=== PATIENT | female | born 1965 | race African-American/Black ===

== ENCOUNTER 2023-09-05 09:43 | Inpatient (IN) | payer BC ==
[~2023-09-05] VITALS: Ht 167.6 cm; Wt 115.7 kg
[2023-09-05 10:33] LABS: HEMATOCRIT. 33.1 % (36.0-48.0); HEMOGLOBIN. 10.4 g/dL (12.0-16.0); MEAN CORPUSCULAR HGB CONC 31.4 g/dL (31.0-37.0); MEAN CORPUSCULAR VOLUME 79.6 fL (81.0-99.0); MEAN PLATELET VOLUME 9.3 fl (7.4-10.4); PLATELET 347 x1000/uL (130-400); RED BLOOD CELL COUNT 4.16 mill/uL (4.2-5.4); RED CELL DISTRIBUTION WIDTH 15.2 % (11.6-14.6); WHITE BLOOD COUNT 23.7 x1000/uL (4.5-11.0)
[2023-09-05 10:35] LABS: CHLORIDE 103 mEq/L (98-107); POTASSIUM 4.5 mEq/L (3.5-5.1); SODIUM 136 mEq/L (136-145)
[2023-09-05 10:36] LABS: CARBON DIOXIDE 25 mEq/L (21-32)
[2023-09-05 10:37] LABS: CALCIUM 8.3 mg/dL (8.7-10.4)
[2023-09-05 10:41] LABS: CREATININE 1.5 mg/dL (0.6-1.0); UREA NITROGEN BLOOD 19 mg/dL (9-23)
[2023-09-05 10:42] LABS: TROPONIN I HIGH SENSITIVITY 29 ng/L (3.0-34)
[2023-09-05 10:45] LABS: BG CARBOXYHEMOGLOBIN 0.2 % (0.5-1.5); BG DEOXYHEMOGLOBIN 11.2 % (0.0-5.0); BG FRACTION INSPIRED OXYGEN 21; BG HCO3 ACT 27.1 mmol/L (22.0-26.0); BG METHEMOGLOBIN 0.3 % (0.0-1.5); BG OXYGEN SATURATION 88.7 % (92.0-98.5); BG OXYHEMOGLOBIN 88.3 % (94.0-97.0); BG PCO2 44.4 mmHg (35.0-45.0); BG PH 7.403 (7.350-7.450); BG PO2 55.6 mmHg (75.0-100.0); BG SAMPLE SITE LEFT BRACHIAL; BG TOTAL HEMOGLOBIN 11.4 g/dL (12.0-18.0); BG VENT MODE ROOM AIR
[2023-09-05 10:49] LABS: GLUCOSE 575 mg/dL (70-105)
[2023-09-05 11:06] LABS: DIFFERENTIAL COMMENT 1
[2023-09-05] MEDS: INSULIN REGULAR (HUMULIN R) 300UNITS/3ML VIAL IV ONE (11:11)
[2023-09-05] MEDS: SODIUM CHLORIDE 0.9% 1,000 ML IV ONE (11:28)
[2023-09-05] MEDS ORDERED: VANCOMYCIN 1000MG/250ML 250 ML IV SCH (11:45)
[2023-09-05] MEDS: INSULIN REGULAR (HUMULIN R) 300UNITS/3ML VIAL IV NR (11:45)
[2023-09-05] MEDS: HYDRALAZINE 20MG/ML VIAL IV ONE (11:59)
[2023-09-05] MEDS: VANCOMYCIN 1.5GM/250ML 250 ML IV NR (12:00)
[2023-09-05 13:19] LABS: ANISOCYTOSIS 1+; PLATELET ESTIMATE NORMAL
[2023-09-05] MEDS ORDERED: DOCUSATE SODIUM 100MG CAPSULE PO PRN (13:30)
[2023-09-05] MEDS ORDERED: PIPERACILLIN/TAZOBACTAM 3.375 G in DEXTROSE 5% WATER 50 ML IV SCH (13:30)
[2023-09-05] MEDS ORDERED: ACETAMINOPHEN 325MG TABLET PO PRN (13:30)
[2023-09-05] MEDS ORDERED: MAGNESIUM/ALUMINUM HYDROXIDE/SIMETHICONE 30ML UDC PO PRN (13:30)
[2023-09-05] MEDS ORDERED: IPRATROPIUM/ALBUTEROL 0.5-3(2.5)MG/3ML NEB HHN PRN (13:30)
[2023-09-05] MEDS ORDERED: GUAIFENESIN 200MG/10ML SUGAR FREE UDC PO PRN (13:30)
[2023-09-05] MEDS ORDERED: ONDANSETRON HCL 4MG/2ML INJ IV PRN (13:30)
[2023-09-05] MEDS: AMLODIPINE 10MG TABLET PO SCH (14:04)
[2023-09-05] MEDS: SODIUM CHLORIDE 0.45% 1,000 ML IV SCH (14:05)
[2023-09-05] MEDS: PIPERACILLIN/TAZO 3.375G/50ML IV SCH (15:00)
[2023-09-05] MEDS: PERMETHRIN 5% CREAM 60GM TOP NR (15:00)
[2023-09-05 17:38] LABS: PROTHROMBIN TIME 10.8 sec (9.6-11.0)
[2023-09-05 17:41] LABS: FERRITIN 216 ng/mL (10-291); FOLIC ACID (FOLATE) SERUM 5.49 ng/mL (>5.38); VITAMIN B12 SERUM 1583 pg/mL (211-911)
[2023-09-05 17:50] LABS: CARBON DIOXIDE 24 mEq/L (21-32); CHLORIDE 106 mEq/L (98-107); POTASSIUM 3.7 mEq/L (3.5-5.1); SODIUM 136 mEq/L (136-145)
[2023-09-05 17:55] LABS: IRON 33 ug/dL (50-170)
[2023-09-05 17:56] LABS: CREATININE 1.4 mg/dL (0.6-1.0); UREA NITROGEN BLOOD 15 mg/dL (9-23)
[2023-09-05 17:57] LABS: ALANINE AMINOTRANSFERASE 35 IU/L (10-49); ALBUMIN 2.4 g/dL (3.2-4.8); ASPARTATE AMINOTRANSFERASE 14 IU/L (<34)
[2023-09-05 17:58] LABS: BILIRUBIN TOTAL 0.2 mg/dL (0.1-1.0); CREATINE KINASE 95 IU/L (34-145); TOTAL IRON BINDING CAPACITY 397 ug/dl (250-425); TROPONIN I HIGH SENSITIVITY 23 ng/L (3.0-34)
[2023-09-05 18:02] LABS: GLUCOSE 485 mg/dL (70-105); PROTEIN TOTAL 5.1 g/dL (6.0-8.3)
[2023-09-05] MEDS: BLOOD SUGAR DIAGNOSTIC STRIP TEST SCH (18:45)
[2023-09-05] MEDS: IVERMECTIN 3 MG TABLET PO NR (18:45)
[2023-09-05] MEDS: ENOXAPARIN 30MG/0.3ML SYR SUBCUT SCH (18:50)
[2023-09-05] MEDS: INSULIN LISPRO 100 UNITS/ML SUBCUT SCH (19:00)
[2023-09-05] MEDS ORDERED: NALOXONE HCL 0.4MG/ML VIAL IV PRN (21:00)
[2023-09-05 22:35] VITALS: BP 135/70; PULSE 66; RESP 18; TEMP 97.5
[2023-09-05] MEDS: INSULIN GLARGINE 100 UNITS/ML SUBCUT SCH (23:40)
[2023-09-06 00:14] VITALS: BP 140/68; PULSE 69; RESP 18; TEMP 97.5
[2023-09-06 00:43] LABS: CREATINE KINASE 92 IU/L (34-145)
[2023-09-06 00:47] LABS: TROPONIN I HIGH SENSITIVITY 22 ng/L (3.0-34)
[2023-09-06 04:00] VITALS: BP 152/70; PULSE 66; RESP 15; TEMP 97.6
[2023-09-06 06:40] LABS: HEMOGLOBIN. 9.7 g/dL (12.0-16.0); MEAN CORPUSCULAR HEMOGLOBIN 25.1 pg (28.0-32.0); MEAN CORPUSCULAR HGB CONC 32.3 g/dL (31.0-37.0); MEAN CORPUSCULAR VOLUME 77.9 fL (81.0-99.0); MEAN PLATELET VOLUME 9.2 fl (7.4-10.4); PLATELET 337 x1000/uL (130-400); RED BLOOD CELL COUNT 3.86 mill/uL (4.2-5.4); RED CELL DISTRIBUTION WIDTH 14.9 % (11.6-14.6); WHITE BLOOD COUNT 20.2 x1000/uL (4.5-11.0)
[2023-09-06 07:11] LABS: DIFFERENTIAL COMMENT 1; T4 FREE 0.75 ng/dL (0.89-1.76); THYROID STIMULATING HORMONE 7.94 uIU/mL (0.55-4.78)
[2023-09-06 07:25] LABS: HEPATITIS B SURFACE ANTIGEN NEGATIVE (Negative)
[2023-09-06 07:46] LABS: HEPATITIS C AB NON REACTIVE (Neg) (Negative)
[2023-09-06 08:00] VITALS: BP 129/78; PULSE 78; RESP 18; TEMP 98.1
[2023-09-06] MEDS: INSULIN LISPRO 100 UNITS/ML SUBCUT SCH (08:48)
[2023-09-06] MEDS: VANCOMYCIN 1GM/200ML PMX (BAXTER) IV SCH (10:22)
[2023-09-06 12:00] VITALS: BP 127/71; PULSE 78; RESP 18; TEMP 97.8
[2023-09-06 15:44] LABS: PLATELET ESTIMATE NORMAL
[2023-09-06 16:00] VITALS: BP 139/71; PULSE 81; RESP 18; TEMP 97.6
[2023-09-06 20:00] VITALS: BP 143/69; PULSE 83; RESP 18; TEMP 99
[2023-09-07 00:31] VITALS: BP 133/72; PULSE 82; RESP 20; TEMP 97.2
[2023-09-07 04:12] VITALS: BP 143/66; PULSE 81; RESP 20; TEMP 97.6
[2023-09-07 08:00] VITALS: BP 217/123; PULSE 82; RESP 22; TEMP 97.7
[2023-09-07] MEDS: HYDROCODONE/ACETAMINOPHEN 5/325MG TABLET PO PRN (08:21)
[2023-09-07] MEDS: HYDRALAZINE 20MG/ML VIAL IV PRN (08:22)
[2023-09-07 11:35] LABS: CALCIUM 7.7 mg/dL (8.7-10.4); CHLORIDE 102 mEq/L (98-107); HEMATOCRIT. 28.5 % (36.0-48.0); HEMOGLOBIN. 9.1 g/dL (12.0-16.0); MEAN CORPUSCULAR HEMOGLOBIN 25.1 pg (28.0-32.0); MEAN CORPUSCULAR HGB CONC 31.9 g/dL (31.0-37.0); MEAN CORPUSCULAR VOLUME 78.5 fL (81.0-99.0); MEAN PLATELET VOLUME 9.4 fl (7.4-10.4); PLATELET 287 x1000/uL (130-400); POTASSIUM 3.9 mEq/L (3.5-5.1); RED BLOOD CELL COUNT 3.63 mill/uL (4.2-5.4); RED CELL DISTRIBUTION WIDTH 14.7 % (11.6-14.6); SODIUM 136 mEq/L (136-145); WHITE BLOOD COUNT 23.4 x1000/uL (4.5-11.0)
[2023-09-07 11:36] LABS: CARBON DIOXIDE 28 mEq/L (21-32)
[2023-09-07 11:41] LABS: CREATININE 1.4 mg/dL (0.6-1.0); GLUCOSE 101 mg/dL (70-105); UREA NITROGEN BLOOD 23 mg/dL (9-23)
[2023-09-07 11:43] LABS: DIFFERENTIAL COMMENT 1
[2023-09-07 11:44] LABS: PHOSPHORUS 2.2 mg/dL (2.5-4.9)
[2023-09-07 12:00] VITALS: BP 174/76; PULSE 85; RESP 20; TEMP 98.1
[2023-09-07 14:20] LABS: PLATELET ESTIMATE NORMAL
[2023-09-07 16:00] VITALS: BP 190/73; PULSE 82; RESP 18; TEMP 97.8
[2023-09-07 20:00] VITALS: BP 118/53; PULSE 85; RESP 18; TEMP 97.8
[2023-09-08] VITALS (7 sets, daily range): BP systolic 122–171; BP diastolic 54–84; PULSE 70–87; RESP 18–20; TEMP 97–98.6
[2023-09-08 06:34] LABS: BASOPHILS % 0.1 % (0.0-2.0); DIFFERENTIAL COMMENT 0; EOSINOPHILS % 1.8 % (0.0-5.0); HEMATOCRIT. 27.3 % (36.0-48.0); LYMPHOCYTES % 7.8 % (20.0-50.0); MEAN CORPUSCULAR HEMOGLOBIN 25.3 pg (28.0-32.0); MEAN CORPUSCULAR HGB CONC 32.8 g/dL (31.0-37.0); MEAN PLATELET VOLUME 9.2 fl (7.4-10.4); NEUTROPHILS % 85.3 % (40.0-76.0); PLATELET 252 x1000/uL (130-400); RED BLOOD CELL COUNT 3.54 mill/uL (4.2-5.4); RED CELL DISTRIBUTION WIDTH 15.2 % (11.6-14.6); WHITE BLOOD COUNT 14.2 x1000/uL (4.5-11.0)
[2023-09-08 06:38] LABS: POTASSIUM 4.1 mEq/L (3.5-5.1)
[2023-09-08 06:39] LABS: CALCIUM 7.6 mg/dL (8.7-10.4)
[2023-09-08 06:47] LABS: CREATININE 1.9 mg/dL (0.6-1.0)
[2023-09-08] MEDS: SODIUM CHLORIDE 0.9% 1,000 ML IV SCH (21:26)
[2023-09-09] VITALS (7 sets, daily range): BP systolic 139–171; BP diastolic 56–75; PULSE 70–87; RESP 18–20; TEMP 97.3–98.3
[2023-09-09] MEDS: CEFAZOLIN 1000MG PREMIX 50 ML IV SCH (03:54)
[2023-09-09 05:54] LABS: BASOPHILS % 0.2 % (0.0-2.0); DIFFERENTIAL COMMENT 0; EOSINOPHILS % 2.4 % (0.0-5.0); HEMATOCRIT. 26.8 % (36.0-48.0); HEMOGLOBIN. 8.8 g/dL (12.0-16.0); MEAN CORPUSCULAR HEMOGLOBIN 25.2 pg (28.0-32.0); MEAN CORPUSCULAR HGB CONC 32.7 g/dL (31.0-37.0); MEAN CORPUSCULAR VOLUME 77.2 fL (81.0-99.0); MEAN PLATELET VOLUME 9.5 fl (7.4-10.4); MONOCYTES % 5.4 % (2.0-8.0); PLATELET 250 x1000/uL (130-400); RED BLOOD CELL COUNT 3.48 mill/uL (4.2-5.4); RED CELL DISTRIBUTION WIDTH 14.7 % (11.6-14.6); WHITE BLOOD COUNT 11.9 x1000/uL (4.5-11.0)
[2023-09-09 06:00] LABS: CALCIUM 7.6 mg/dL (8.7-10.4); CARBON DIOXIDE 27 mEq/L (21-32); CHLORIDE 104 mEq/L (98-107); SODIUM 135 mEq/L (136-145)
[2023-09-09 06:05] LABS: CREATININE 1.9 mg/dL (0.6-1.0); GLUCOSE 62 mg/dL (70-105)
[2023-09-09 06:06] LABS: UREA NITROGEN BLOOD 29 mg/dL (9-23)
[2023-09-09 06:07] LABS: PHOSPHORUS 3.3 mg/dL (2.5-4.9)
[2023-09-09] MEDS ORDERED: VANCOMYCIN 1G PREMIX 200 ML IV SCH (09:00)
[2023-09-09] MEDS: MAGNESIUM 4 G PREMIX 100 ML IV NR (10:11)
[2023-09-09] MEDS: FUROSEMIDE 40MG/4ML VIAL IVP SCH (11:29)
[2023-09-09] MEDS: CEFAZOLIN 2GM/100ML 100 ML IV SCH (14:20)
[2023-09-09] MEDS: IRON SUCROSE COMPLEX 100 MG/5 ML ML IV SCH (17:18)
[2023-09-10] VITALS: BP 176/70; PULSE 97; RESP 18; TEMP 96.6
[2023-09-10 04:00] VITALS: BP 179/79; PULSE 79; RESP 20; TEMP 96.4
[2023-09-10 05:17] LABS: CLARITY URINE CLOUDY (CLEAR); COLOR URINE YELLOW (YELLOW); GLUCOSE URINE NEGATIVE (NEGATIVE); KETONES URINE NEGATIVE (NEGATIVE); LEUKOCYTE ESTERASE URINE 3+ (NEGATIVE); NITRITE URINE NEGATIVE (NEGATIVE); OCCULT BLOOD URINE NEGATIVE (NEGATIVE); PROTEIN URINE 1+ (NEGATIVE); SPECIFIC GRAVITY URINE 1.008 (1.005-1.030); UROBILINOGEN URINE 0.2 E.U./dL (0.2-1.0)
[2023-09-10 05:30] LABS: BACTERIA URINE 1+; RBC URINE 0-2 /hpf (0-2); SQUAMOUS EPITHELIAL CELL URINE 1+ /lpf (RARE/1+); YEAST URINE 2+
[2023-09-10 06:23] LABS: BASOPHILS % 0.4 % (0.0-2.0); DIFFERENTIAL COMMENT 0; EOSINOPHILS % 2.2 % (0.0-5.0); HEMATOCRIT. 26.8 % (36.0-48.0); HEMOGLOBIN. 8.8 g/dL (12.0-16.0); LYMPHOCYTES % 10.6 % (20.0-50.0); MEAN CORPUSCULAR HEMOGLOBIN 25.5 pg (28.0-32.0); MEAN CORPUSCULAR HGB CONC 32.8 g/dL (31.0-37.0); MEAN CORPUSCULAR VOLUME 77.7 fL (81.0-99.0); MEAN PLATELET VOLUME 9.7 fl (7.4-10.4); MONOCYTES % 6.8 % (2.0-8.0); PLATELET 243 x1000/uL (130-400); RED BLOOD CELL COUNT 3.45 mill/uL (4.2-5.4); RED CELL DISTRIBUTION WIDTH 15.2 % (11.6-14.6)
[2023-09-10 06:36] LABS: CARBON DIOXIDE 25 mEq/L (21-32); CHLORIDE 104 mEq/L (98-107); POTASSIUM 4.2 mEq/L (3.5-5.1); SODIUM 134 mEq/L (136-145)
[2023-09-10 06:37] LABS: CALCIUM 7.6 mg/dL (8.7-10.4)
[2023-09-10 06:42] LABS: GLUCOSE 191 mg/dL (70-105); UREA NITROGEN BLOOD 23 mg/dL (9-23)
[2023-09-10 06:44] LABS: PHOSPHORUS 3.2 mg/dL (2.5-4.9)
[2023-09-10 08:00] VITALS: BP 145/62; PULSE 80; RESP 18; TEMP 97.8
[2023-09-10 12:00] VITALS: BP 146/73; PULSE 76; RESP 18; TEMP 97.9
[2023-09-10 16:00] VITALS: BP 150/49; PULSE 75; RESP 18; TEMP 97.6
[2023-09-10] MEDS: DEXTROSE 50% WATER 50ML SYRINGE IV PRN (17:49)
[2023-09-10 20:00] VITALS: BP 153/69; PULSE 73; RESP 18; TEMP 96
[2023-09-11] VITALS: BP 157/73; PULSE 74; RESP 19; TEMP 97.2
[2023-09-11 04:00] VITALS: BP 164/69; PULSE 72; RESP 20; TEMP 96.8
[2023-09-11 07:21] LABS: CHLORIDE 103 mEq/L (98-107); POTASSIUM 4.3 mEq/L (3.5-5.1); SODIUM 136 mEq/L (136-145)
[2023-09-11 07:22] LABS: CALCIUM 7.6 mg/dL (8.7-10.4); CARBON DIOXIDE 27 mEq/L (21-32)
[2023-09-11 07:27] LABS: CREATININE 1.8 mg/dL (0.6-1.0); GLUCOSE 171 mg/dL (70-105); UREA NITROGEN BLOOD 25 mg/dL (9-23)
[2023-09-11 07:29] LABS: PHOSPHORUS 3.2 mg/dL (2.5-4.9)
[2023-09-11 07:32] LABS: BASOPHILS % 0.2 % (0.0-2.0); DIFFERENTIAL COMMENT 0; EOSINOPHILS % 2.5 % (0.0-5.0); HEMATOCRIT. 26.4 % (36.0-48.0); HEMOGLOBIN. 8.8 g/dL (12.0-16.0); LYMPHOCYTES % 12.6 % (20.0-50.0); MEAN CORPUSCULAR HEMOGLOBIN 26.1 pg (28.0-32.0); MEAN CORPUSCULAR HGB CONC 33.1 g/dL (31.0-37.0); MEAN CORPUSCULAR VOLUME 78.6 fL (81.0-99.0); MEAN PLATELET VOLUME 9.4 fl (7.4-10.4); MONOCYTES % 8.7 % (2.0-8.0); PLATELET 278 x1000/uL (130-400); RED BLOOD CELL COUNT 3.36 mill/uL (4.2-5.4); RED CELL DISTRIBUTION WIDTH 14.8 % (11.6-14.6); WHITE BLOOD COUNT 7.8 x1000/uL (4.5-11.0)
[2023-09-11 08:00] VITALS: BP 210/78; PULSE 82; RESP 18; TEMP 98.7
[2023-09-11 12:00] VITALS: BP 127/67; PULSE 72; RESP 18; TEMP 96.9
[2023-09-11] MEDS: METOLAZONE 10MG TABLET PO SCH (13:43)
[2023-09-11 16:00] VITALS: BP 137/65; PULSE 72; RESP 18; TEMP 99
[2023-09-11] MEDS: FUROSEMIDE 40MG/4ML VIAL IVP SCH (18:03)
[2023-09-11 20:00] VITALS: BP 152/60; PULSE 74; RESP 18; TEMP 97.5
[2023-09-11] MEDS: CARVEDILOL 3.125 MG TABLET PO SCH (21:14)
[2023-09-12] VITALS: BP 142/70; PULSE 78; RESP 17; TEMP 97.7
[2023-09-12 04:00] VITALS: BP 138/55; PULSE 67; RESP 18; TEMP 97.9
[2023-09-12 07:11] LABS: BASOPHILS % 0.5 % (0.0-2.0); DIFFERENTIAL COMMENT 0; EOSINOPHILS % 2.4 % (0.0-5.0); HEMATOCRIT. 25.5 % (36.0-48.0); HEMOGLOBIN. 8.3 g/dL (12.0-16.0); LYMPHOCYTES % 16.3 % (20.0-50.0); MEAN CORPUSCULAR HEMOGLOBIN 25.3 pg (28.0-32.0); MEAN CORPUSCULAR HGB CONC 32.6 g/dL (31.0-37.0); MEAN CORPUSCULAR VOLUME 77.7 fL (81.0-99.0); MEAN PLATELET VOLUME 9.4 fl (7.4-10.4); MONOCYTES % 8.7 % (2.0-8.0); NEUTROPHILS % 72.1 % (40.0-76.0); PLATELET 271 x1000/uL (130-400); RED BLOOD CELL COUNT 3.29 mill/uL (4.2-5.4); RED CELL DISTRIBUTION WIDTH 14.9 % (11.6-14.6); WHITE BLOOD COUNT 7.4 x1000/uL (4.5-11.0)
[2023-09-12 07:19] LABS: CALCIUM 7.6 mg/dL (8.7-10.4); CARBON DIOXIDE 28 mEq/L (21-32); CHLORIDE 103 mEq/L (98-107); POTASSIUM 4.3 mEq/L (3.5-5.1); SODIUM 137 mEq/L (136-145)
[2023-09-12 07:24] LABS: CREATININE 1.8 mg/dL (0.6-1.0)
[2023-09-12 07:25] LABS: GLUCOSE 88 mg/dL (70-105); UREA NITROGEN BLOOD 25 mg/dL (9-23)
[2023-09-12 07:27] LABS: PHOSPHORUS 3.3 mg/dL (2.5-4.9)
[2023-09-12 08:00] VITALS: BP 135/65; PULSE 63; RESP 18; TEMP 96.4
[2023-09-12 12:00] VITALS: BP 132/54; PULSE 69; RESP 18; TEMP 97.1
[2023-09-12] MEDS: FUROSEMIDE 40MG/4ML VIAL IVP SCH (14:17)
[2023-09-12 16:00] VITALS: BP 134/55; PULSE 64; RESP 18; TEMP 96.8
[2023-09-12] MEDS: INSULIN LISPRO 100 UNITS/ML SUBCUT SCH (17:10)
[2023-09-12 20:00] VITALS: BP 142/66; PULSE 72; RESP 18; TEMP 97.7
[2023-09-12] MEDS: INSULIN GLARGINE 100 UNITS/ML SUBCUT SCH (21:09)
[2023-09-13] VITALS: BP 134/58; PULSE 68; RESP 18; TEMP 97.7
[2023-09-13 04:00] VITALS: BP 144/63; PULSE 69; RESP 17; TEMP 97.9
[2023-09-13 06:50] LABS: BASOPHILS % 0.8 % (0.0-2.0); DIFFERENTIAL COMMENT 0; EOSINOPHILS % 2.4 % (0.0-5.0); HEMATOCRIT. 25.2 % (36.0-48.0); HEMOGLOBIN. 8.3 g/dL (12.0-16.0); LYMPHOCYTES % 16.5 % (20.0-50.0); MEAN CORPUSCULAR HEMOGLOBIN 25.6 pg (28.0-32.0); MEAN CORPUSCULAR HGB CONC 32.9 g/dL (31.0-37.0); MEAN CORPUSCULAR VOLUME 77.7 fL (81.0-99.0); MEAN PLATELET VOLUME 9.2 fl (7.4-10.4); MONOCYTES % 8.7 % (2.0-8.0); NEUTROPHILS % 71.6 % (40.0-76.0); PLATELET 284 x1000/uL (130-400); RED BLOOD CELL COUNT 3.25 mill/uL (4.2-5.4); WHITE BLOOD COUNT 7.3 x1000/uL (4.5-11.0)
[2023-09-13 06:51] LABS: CARBON DIOXIDE 28 mEq/L (21-32); CHLORIDE 102 mEq/L (98-107); POTASSIUM 4.3 mEq/L (3.5-5.1); SODIUM 137 mEq/L (136-145)
[2023-09-13 06:52] LABS: CALCIUM 7.8 mg/dL (8.7-10.4)
[2023-09-13 06:57] LABS: CREATININE 1.8 mg/dL (0.6-1.0); GLUCOSE 133 mg/dL (70-105); UREA NITROGEN BLOOD 26 mg/dL (9-23)
[2023-09-13 06:59] LABS: PHOSPHORUS 3.9 mg/dL (2.5-4.9)
[2023-09-13 08:00] VITALS: BP 100/74; PULSE 67; RESP 18; TEMP 97.9
[2023-09-13 12:00] VITALS: BP 151/61; PULSE 69; RESP 18; TEMP 97.7
[2023-09-13] MEDS: ACETAMINOPHEN 325MG TABLET PO PRN (12:39)
[2023-09-13 16:00] VITALS: BP 170/70; PULSE 66; RESP 20; TEMP 98
[2023-09-13 20:00] VITALS: BP 142/64; PULSE 70; RESP 18; TEMP 97.5
[2023-09-14] VITALS: BP 132/75; PULSE 76; RESP 18; TEMP 97.7
[2023-09-14 04:00] VITALS: BP 165/65; PULSE 75; RESP 18; TEMP 97.9
[2023-09-14 08:00] VITALS: BP 162/64; PULSE 74; RESP 20; TEMP 99
[2023-09-14 12:00] VITALS: BP 129/67; PULSE 70; RESP 18; TEMP 97.6
[2023-09-14 16:00] VITALS: BP 151/61; PULSE 72; RESP 20; TEMP 97.9
[2023-09-14] MEDS: FUROSEMIDE 40MG TABLET PO SCH (17:52)
[2023-09-14 20:00] VITALS: BP 146/68; PULSE 76; RESP 20; TEMP 97.8
[2023-09-15] VITALS: BP 155/60; PULSE 72; RESP 20; TEMP 98.4
[2023-09-15 04:00] VITALS: BP 152/61; PULSE 70; RESP 20; TEMP 98
[2023-09-15] MEDS ORDERED: LIDOCAINE HCL 1% 10 MG/ML 10ML VIAL ONE (07:28)
[2023-09-15 08:00] VITALS: BP 198/78; PULSE 71; RESP 20; TEMP 96.8
[2023-09-15 12:00] VITALS: BP 167/66; PULSE 68; RESP 18; TEMP 97.6
[2023-09-15 20:00] VITALS: BP 128/56; PULSE 66; RESP 18; TEMP 98.4
[2023-09-16] VITALS: BP 142/58; PULSE 62; RESP 18; TEMP 97.6
[2023-09-16] MEDS: DOXYCYCLINE 100MG/100ML 100 ML IV SCH (01:54)
[2023-09-16 04:00] VITALS: BP 137/81; PULSE 98; RESP 18; TEMP 97
[2023-09-16 08:00] VITALS: BP 154/61; PULSE 66; RESP 20; TEMP 97.7
[2023-09-16] MEDS: CEFAZOLIN 2GM/100ML 100 ML IV SCH (08:15)
[2023-09-16 12:00] VITALS: BP 136/54; PULSE 67; RESP 19; TEMP 97.9
[2023-09-16] MEDS ORDERED: FUROSEMIDE 40MG/4ML VIAL IVP SCH (13:15)
[2023-09-16 16:00] VITALS: BP 130/104; PULSE 74; RESP 20; TEMP 97.5
[2023-09-16 16:30] LABS: POTASSIUM 4.2 mEq/L (3.5-5.1)
[2023-09-16 16:31] LABS: CALCIUM 8.3 mg/dL (8.7-10.4)
[2023-09-16 16:36] LABS: CREATININE 1.8 mg/dL (0.6-1.0)
[2023-09-16] MEDS: FUROSEMIDE 40MG/4ML VIAL IVP SCH (17:18)
[2023-09-16 20:00] VITALS: BP 151/68; PULSE 71; RESP 18; TEMP 98.2
[2023-09-17] VITALS: BP 161/64; PULSE 76; RESP 18; TEMP 98
[2023-09-17 04:00] VITALS: BP 151/68; PULSE 80; RESP 18; TEMP 98
[2023-09-17 08:00] VITALS: BP 112/57; PULSE 77; RESP 18; TEMP 98.8
[2023-09-17 12:00] VITALS: BP 141/58; PULSE 76; RESP 18; TEMP 98.1
[2023-09-17] MEDS: VANCOMYCIN 1,750 MG in DEXT 5% WATER 500 ML IV SCH (12:27)
[2023-09-17 15:40] VITALS: BP 141/58; PULSE 76; TEMP 98.1; O2SAT 100
[2023-09-17 16:00] VITALS: BP 150/66; PULSE 72; RESP 18; TEMP 97.1
== END 2023-09-17 19:10 | DRG 871 ==
LOC: ER 09:43 → EDBEDREQ 10:05 → 5WST 11:54 → EDBEDREQ 11:59 → EDBEDREQTM 11:59 → 8WST 20:48
PROVIDERS: ADMIT Internal Medicine; ATTEND Internal Medicine
PROC: 02HV33Z Insertion of Infusion Device into Superior Vena Cava, Percutaneous Approach (ICD-10-PCS; principal; 2023-09-15)
PROC: B5181ZA Fluoroscopy of Superior Vena Cava using Low Osmolar Contrast, Guidance (ICD-10-PCS; 2023-09-15)
PROC: B548ZZA Ultrasonography of Superior Vena Cava, Guidance (ICD-10-PCS; 2023-09-15)
DX: A41.01 Sepsis due to Methicillin susceptible Staphylococcus aureus (principal); N17.0 Acute kidney failure with tubular necrosis; N39.0 Urinary tract infection, site not specified; Z68.41 Body mass index [BMI] 40.0-44.9, adult; E11.621 Type 2 diabetes mellitus with foot ulcer; E11.65 Type 2 diabetes mellitus with hyperglycemia; E66.01 Morbid (severe) obesity due to excess calories; D50.9 Iron deficiency anemia, unspecified; B86 Scabies; I10 Essential (primary) hypertension; L89.899 Pressure ulcer of other site, unspecified stage; L89.620 Pressure ulcer of left heel, unstageable; E83.42 Hypomagnesemia; E11.21 Type 2 diabetes mellitus with diabetic nephropathy; E11.51 Type 2 diabetes mellitus with diabetic peripheral angiopathy without gangrene; F39 Unspecified mood [affective] disorder; Z74.01 Bed confinement status; Z91.148 Patient's other noncompliance with medication regimen for other reason; Z79.4 Long term (current) use of insulin; Z79.899 Other long term (current) drug therapy
CPT/HCPCS: 36415; 36573; 36600; 71045; 73630; 76770; 80048; 80053; 80061; 80202; 81003; 82375; 82550; 82607; 82728; 82746; 82805; 82962; 83036; 83540; 83550; 83605; 83735; 83880; 84100; 84145; 84439; 84443; 84484; 85025; 86705; 87070; 87077; 87106; 87186; 87340; 93005; 93306; 93923; 93970; 97110; 97162; 97166; 97530; 97535; 99285; A6261; C1725; C1893; J0360; J0690; J1650; J1815; J1940; J2543; J3370; J3475; J3490; J7030; J7060